=== PATIENT | male | born 1955 | race Two or more races ===

== ENCOUNTER 2024-01-12 16:33 | Inpatient (IN) | payer MEDICARE, MEDICAID ==
[~2024-01-12] VITALS: Ht 172.7 cm; Wt 113.0 kg
[2024-01-12 19:35] LABS: BASOPHILS % (AUTO) 0.6 % (0.0-2.0); EOSINOPHILS % (AUTO) 1.3 % (1.0-6.0); HEMATOCRIT 51.6 % (41-53); HEMOGLOBIN 17.4 g/dL (13.5-17.5); LYMPHOCYTES # (AUTO) 2.2 K/uL (1.0-4.8); LYMPHOCYTES % (AUTO) 22.5 % (22.0-44.0); MEAN CORPUSCULAR HGB CONC 33.7 G/dL (31.0-37.0); MEAN CORPUSCULAR VOLUME 89 fL (80-100); MONOCYTES % (AUTO) 10.8 % (2.0-9.0); NEUTROPHILS # (AUTO) 6.2 K/uL (1.8-7.7); NEUTROPHILS % (AUTO) 64.8 % (40.0-70.0); PLATELET COUNT (AUTO) 227 K/uL (150-450); RED CELL DISTRIBUTION WIDTH 15.5 % (11.5-14.5); WHITE BLOOD COUNT (AUTO) 9.6 K/uL (4.5-11.0)
[2024-01-12 19:38] LABS: ANION GAP 10 mmol/L (8-16); CALCIUM, TOTAL 9.1 mg/dL (8.8-10.5); CARBON DIOXIDE 28 mmol/L (22-29); CHLORIDE 103 mmol/L (98-107); CREATININE 1.33 mg/dL (0.60-1.30); GLOMERULAR FILTR. RATE CALC 54 mL/min (>60); GLUCOSE,RANDOM 88 mg/dL (70-110); POTASSIUM 4.3 mmol/L (3.5-5.1); SODIUM SERUM 141 mmol/L (136-145); UREA NITROGEN, BLOOD 19 mg/dL (7-18)
[2024-01-12 19:43] LABS: ALCOHOL, BLOOD (SERUM) < 3 mg/dL (0-10)
[2024-01-12 19:58] LABS: TROPONIN I-HIGH SENSITIVITY 489 ng/L (<76)
[2024-01-12 20:00] LABS: ALANINE AMINOTRANSFERASE 18 U/L (12-78); ALBUMIN 3.5 g/dL (3.4-5.0); ALKALINE PHOSPHATASE 108 U/L (46-116); ASPARTATE AMINOTRANSFERASE 18 U/L (15-37); BILIRUBIN,TOTAL 0.7 mg/dL (0.1-1.0); LIPASE 61 U/L (16-77)
[2024-01-12] MEDS: OXYGEN THERAPY IH SCH (21:45)
[2024-01-12] MEDS ORDERED: ACETAMINOPHEN 325 MG TABLET PO PRN (21:45)
[2024-01-12] MEDS ORDERED: ONDANSETRON HCL 4 MG/2 ML VIAL IVP PRN (21:45)
[2024-01-12] MEDS ORDERED: NITROGLYCERIN 0.4 MG SUBLINGUAL TABLET #25 SL PRN (21:45)
[2024-01-12] MEDS: MAGNESIUM SULFATE 2 GM, MVI, ADULT NO.1 WITH VIT K 10 ML, THIAMINE 100 MG, FOLIC ACID 1... IV ONE (23:44)
[2024-01-12] MEDS: LORazepam 2 MG/ML VIAL IVP ONE (23:45)
[2024-01-12] MEDS: ATORVASTATIN CALCIUM 40 MG TABLET PO SCH (23:46)
[2024-01-12] MEDS: ASPIRIN 325 MG TABLET PO ONE (23:47)
[2024-01-12] MEDS: CARVEDILOL 6.25 MG TABLET PO SCH (23:47)
[2024-01-12] MEDS: NITROGLYCERIN 2% (1 GM=INCH) OINTMENT PACKET TP ONE (23:48)
[2024-01-12] MEDS: ENOXAPARIN SODIUM 40 MG/0.4 ML PF SYRINGE SQ SCH (23:48)
[2024-01-13 01:00] LABS: COVID AG,FIA SOURCE NASAL SWAB
[2024-01-13 01:10] LABS: SARS-COV2 (COVID) ANTIGEN,FIA Negative (Negative)
[2024-01-13 02:10] VITALS: BP 149/95; PULSE 69; RESP 17; TEMP 98.1; O2SAT 97
[2024-01-13 04:00] VITALS: BP 135/90; PULSE 69; RESP 17; TEMP 98; O2SAT 97
[2024-01-13 07:30] LABS: BASOPHILS % (AUTO) 0.7 % (0.0-2.0); EOSINOPHILS % (AUTO) 3.3 % (1.0-6.0); LYMPHOCYTES # (AUTO) 2.5 K/uL (1.0-4.8); LYMPHOCYTES % (AUTO) 30.4 % (22.0-44.0); MEAN CORPUSCULAR HEMOGLOBIN 30.4 pg (26.0-34.0); MEAN CORPUSCULAR HGB CONC 34.2 G/dL (31.0-37.0); MEAN CORPUSCULAR VOLUME 89 fL (80-100); MONOCYTES # (AUTO) 0.6 K/uL (0.1-1.0); MONOCYTES % (AUTO) 7.8 % (2.0-9.0); NEUTROPHILS # (AUTO) 4.8 K/uL (1.8-7.7); NEUTROPHILS % (AUTO) 57.8 % (40.0-70.0); PLATELET COUNT (AUTO) 195 K/uL (150-450); RED BLOOD CELL COUNT(AUTO) 4.95 MIL/uL (4.50-5.90); RED CELL DISTRIBUTION WIDTH 15.5 % (11.5-14.5); WHITE BLOOD COUNT (AUTO) 8.3 K/uL (4.5-11.0)
[2024-01-13 07:50] LABS: TROPONIN I-HIGH SENSITIVITY 423 ng/L (<76)
[2024-01-13 07:57] LABS: ALANINE AMINOTRANSFERASE 12 U/L (12-78); ALBUMIN 2.9 g/dL (3.4-5.0); ALKALINE PHOSPHATASE 87 U/L (46-116); ANION GAP 9 mmol/L (8-16); ASPARTATE AMINOTRANSFERASE 14 U/L (15-37); CALCIUM, TOTAL 8.5 mg/dL (8.8-10.5); CARBON DIOXIDE 25 mmol/L (22-29); CHLORIDE 106 mmol/L (98-107); GLOMERULAR FILTR. RATE CALC > 60 mL/min (>60); GLUCOSE,RANDOM 113 mg/dL (70-110); POTASSIUM 3.5 mmol/L (3.5-5.1); SODIUM SERUM 140 mmol/L (136-145); UREA NITROGEN, BLOOD 18 mg/dL (7-18)
[2024-01-13 08:42] LABS: BILIRUBIN,TOTAL 1.1 mg/dL (0.1-1.0); TOTAL PROTEIN, SERUM 6.2 g/dL (6.4-8.2)
[2024-01-13 08:58] VITALS: BP 162/117; PULSE 80; RESP 19; TEMP 98.2; O2SAT 96
[2024-01-13] MEDS: ASPIRIN 325 MG TABLET PO SCH (09:21)
[2024-01-13] MEDS: LISINOPRIL 10 MG TABLET PO SCH (09:22)
[2024-01-13] MEDS ORDERED: NITROGLYCERIN 0.4 MG SUBLINGUAL TABLET #25 SL PRN (11:15)
[2024-01-13 11:36] VITALS: BP 137/88; PULSE 86; RESP 20; TEMP 98.5; O2SAT 100
[2024-01-13 15:16] VITALS: BP 134/82; PULSE 90; RESP 20; TEMP 98.1; O2SAT 99
[2024-01-13 20:00] VITALS: BP 141/82; PULSE 65; RESP 18; TEMP 97.9; O2SAT 98
[2024-01-14] VITALS (7 sets, daily range): BP systolic 117–150; BP diastolic 60–91; PULSE 64–88; RESP 15–18; TEMP 97.8–98.2; O2SAT 96–100
[2024-01-14 07:26] LABS: HEMOGLOBIN A1C 5.2 % (3.8-5.6)
[2024-01-14 07:32] LABS: TROPONIN I-HIGH SENSITIVITY 449 ng/L (<76)
[2024-01-14 08:21] LABS: CHOL/HDL RATIO 3.8 (4.2-7.3); THYROID STIMULATING HORMONE 2.44 uIU/mL (0.36-3.74)
[2024-01-14] MEDS: ASPIRIN 81 MG DR TABLET PO SCH (08:52)
[2024-01-15 04:08] VITALS: BP 145/96; PULSE 64; RESP 17; TEMP 97.5; O2SAT 98
[2024-01-15 07:14] LABS: BASOPHILS % (AUTO) 0.9 % (0.0-2.0); EOSINOPHILS % (AUTO) 3.6 % (1.0-6.0); HEMATOCRIT 46.3 % (41-53); LYMPHOCYTES # (AUTO) 2.6 K/uL (1.0-4.8); LYMPHOCYTES % (AUTO) 29.2 % (22.0-44.0); MEAN CORPUSCULAR HEMOGLOBIN 30.8 pg (26.0-34.0); MEAN CORPUSCULAR HGB CONC 34.6 G/dL (31.0-37.0); MEAN CORPUSCULAR VOLUME 89 fL (80-100); MONOCYTES # (AUTO) 0.7 K/uL (0.1-1.0); MONOCYTES % (AUTO) 7.9 % (2.0-9.0); NEUTROPHILS # (AUTO) 5.1 K/uL (1.8-7.7); NEUTROPHILS % (AUTO) 58.4 % (40.0-70.0); PLATELET COUNT (AUTO) 212 K/uL (150-450); RED BLOOD CELL COUNT(AUTO) 5.21 MIL/uL (4.50-5.90); RED CELL DISTRIBUTION WIDTH 14.8 % (11.5-14.5); WHITE BLOOD COUNT (AUTO) 8.8 K/uL (4.5-11.0)
[2024-01-15 07:30] LABS: CALCIUM, TOTAL 8.4 mg/dL (8.8-10.5); CARBON DIOXIDE 26 mmol/L (22-29); CREATININE 0.86 mg/dL (0.60-1.30); GLOMERULAR FILTR. RATE CALC > 60 mL/min (>60); GLUCOSE,RANDOM 92 mg/dL (70-110); UREA NITROGEN, BLOOD 15 mg/dL (7-18)
[2024-01-15 08:05] LABS: ANION GAP 9 mmol/L (8-16); CHLORIDE 102 mmol/L (98-107); POTASSIUM 3.5 mmol/L (3.5-5.1); SODIUM SERUM 137 mmol/L (136-145)
[2024-01-15 09:00] VITALS: BP 138/90; PULSE 68; RESP 16; TEMP 97.1; O2SAT 96
[2024-01-15 14:16] VITALS: BP 136/84; PULSE 84; RESP 18; TEMP 97.4; O2SAT 98
[2024-01-15 15:12] VITALS: BP 134/78; PULSE 76; RESP 19; TEMP 98; O2SAT 97
[2024-01-15 19:59] VITALS: BP 156/76; PULSE 88; RESP 18; TEMP 98.6; O2SAT 98
[2024-01-15 23:20] VITALS: BP 114/74; PULSE 84; RESP 17; TEMP 98.1; O2SAT 98
[2024-01-16 03:14] VITALS: BP 133/71; PULSE 70; RESP 16; TEMP 97.6; O2SAT 99
[2024-01-16 08:05] VITALS: BP 156/102; PULSE 88; RESP 18; TEMP 98.3; O2SAT 96
[2024-01-16] MEDS: APIXABAN 5 MG TABLET PO SCH (09:16)
[2024-01-16 11:45] VITALS: BP 127/64; PULSE 71; RESP 18; TEMP 98.1; O2SAT 96
[2024-01-16 16:00] VITALS: BP 145/61; PULSE 72; RESP 18; TEMP 98.2; O2SAT 97
[2024-01-16 19:28] VITALS: BP 126/72; PULSE 88; RESP 18; TEMP 98.1; O2SAT 96
[2024-01-17 00:05] VITALS: BP 137/94; PULSE 77; RESP 18; TEMP 97.9; O2SAT 99
[2024-01-17 03:26] VITALS: BP 107/87; PULSE 79; RESP 18; TEMP 97.7; O2SAT 95
[2024-01-17 08:00] VITALS: BP 126/82; PULSE 66; RESP 18; TEMP 97.7; O2SAT 98
[2024-01-17] MEDS ORDERED: LISI-893 PO (11:14)
[2024-01-17] MEDS ORDERED: APIX5TAB PO (11:14)
[2024-01-17] MEDS ORDERED: CARV6 PO (11:14)
[2024-01-17] MEDS ORDERED: ATOR40TA71 PO (11:14)
[2024-01-17] MEDS ORDERED: NITR0.4T52 SL (11:14)
== END 2024-01-17 13:51 | disposition home or self-care (01) | DRG 311 ==
LOC: EMS 16:33 → EDBEDREQ 20:48 → EDH 21:45 → 5S 01-13 01:46
PROVIDERS: ADMIT Internal Medicine; ATTEND Family Medicine
DX: I24.9 Acute ischemic heart disease, unspecified (principal); N17.0 Acute kidney failure with tubular necrosis; Z59.02 Unsheltered homelessness; I48.19 Other persistent atrial fibrillation; I47.20 Ventricular tachycardia, unspecified; Z20.822 Contact with and (suspected) exposure to COVID-19; I50.9 Heart failure, unspecified; I11.0 Hypertensive heart disease with heart failure; E11.65 Type 2 diabetes mellitus with hyperglycemia; F10.20 Alcohol dependence, uncomplicated; I45.10 Unspecified right bundle-branch block; Y90.9 Presence of alcohol in blood, level not specified
CPT/HCPCS: 71045; 80048; 80053; 80061; 80076; 82140; 83036; 83690; 83735; 83880; 84443; 84484; 85025; 93005; 93306; 97162; 97165; 97535; 99285; G0378; G0480; J1650; J2060; J3411; J3475; J3490; J7030; 36415-L1; 36415-TC